=== PATIENT | male | born 1990 | race American Indian/Alaskan Native ===

== ENCOUNTER 2019-04-08 09:54 | Emergency (ER) | payer OTHER ==
[2019-04-08] MEDS ORDERED: BOOSTRIX IM ONE (10:35)
--- NOTE | 2019-04-08 10:40 | Emergency Department Report ---
- General Chief complaint: Extremity Injury, Lower Stated complaint: SPIDER BITE Time Seen by Provider: 04/08/19 10:20 Source: patient Mode of arrival: Ambulatory Limitations: No Limitations - History of Present Illness Initial comments: Patient is a 29-year-old male who presents emergency room with complaints of a possible spider bite to his left foot that occurred 3 days ago. He states he did not see anything bite him but did feel pain. pt states he has had redness and swelling to the foot. Denies any drainage or fever. he is unsure of his last tetanus immunization. Patient denies any past medical history or allergies to medications. - Related Data Previous Rx's Medication Instructions Recorded Last Taken Type Sulfamethoxazole/Trimethoprim 1 each PO BID 7 Days #14 tablet 04/08/19 Unknown Rx [Bactrim DS TAB] Allergies Allergy/AdvReac Type Severity Reaction Status Date / Time No Known Allergies Allergy Unverified 04/08/19 09:57 Abscess Boil HPI - HPI Chief Complaint: Extremity Injury, Lower Stated Complaint: SPIDER BITE Time Seen by Provider: 04/08/19 10:20 Home Medications: Previous Rx's Medication Instructions Recorded Last Taken Type Sulfamethoxazole/Trimethoprim 1 each PO BID 7 Days #14 tablet 04/08/19 Unknown Rx [Bactrim DS TAB] Allergies/Adverse Reactions: Allergies Allergy/AdvReac Type Severity Reaction Status Date / Time No Known Allergies Allergy Unverified 04/08/19 09:57 ED Review of Systems ROS: Stated complaint: SPIDER BITE Other details as noted in HPI Comment: All other systems reviewed and negative ED Past Medical Hx - Past Medical History Previous Medical History?: No - Surgical History Past Surgical History?: No - Social History Smoking Status: Current Every Day Smoker Substance Use Type: Alcohol - Medications Home Medications: Home Medications Medication Instructions Recorded Confirmed Last Taken Type Sulfamethoxazole/Trimethoprim 1 each PO BID 7 Days #14 tablet 04/08/19 Unknown Rx [Bactrim DS TAB] ED Physical Exam - General Limitations: No Limitations General appearance: alert, in no apparent distress - Head Head exam: Present: atraumatic, normocephalic - Eye Eye exam: Present: normal appearance - ENT ENT exam: Present: mucous membranes moist - Neurological Exam Neurological exam: Present: alert, oriented X3 - Psychiatric Psychiatric exam: Present: normal affect, normal mood - Skin Skin exam: Present: warm, dry, other (small hyperpigmented macule, left dorsal foot is edematous, erythematous, TTP, and increased warmth, no fluctuance, no necrosis, no drainage) ED Course Vital Signs 04/08/19 04/08/19 10:00 11:01 Temperature 98.4 F Pulse Rate 84 80 Respiratory 18 16 Rate Blood Pressure 115/75 Blood Pressure 114/71 [Left] O2 Sat by Pulse 100 100 Oximetry ED Medical Decision Making - Medical Decision Making Patient is a 29-year-old male who presents emergency room with complaints of a possible spider bite to his left foot that occurred 3 days ago. He states he did not see anything bite him but did feel pain. pt states he has had redness and swelling to the foot. Denies any drainage or fever. he is unsure of his last tetanus immunization. Patient denies any past medical history or allergies to medications. vitals are normal. on exam: small hyperpigmented macule, left dorsal foot is edematous, erythematous, TTP, and increased warmth, no fluctuance, no necrosis, no drainage. findings could represent possible spider bite with surrounding cellulitis, no abscess at this time and no necrosis. pt given tetanus immunization. pt given prescription for bactrim. advised pt to please take medication as prescribed completion. Follow up with a primary care doctor in the next 3 days for reevaluation. Return to the emergency room immediately for any new or worsening symptoms including but not limited to increasing redness, increasing pain, increasing swelling, drainage, etc. discussed with pt that he would need to return if abx were not working or if abscess formation occurred. - Differential Diagnosis spider bite, abscess, cellulitis Critical care attestation.: If time is entered above; I have spent that time in minutes in the direct care of this critically ill patient, excluding procedure time. ED Disposition Clinical Impression: Cellulitis Qualifiers: Site of cellulitis: extremity Site of cellulitis of extremity: lower extremity Laterality: left Qualified Code(s): L03.116 - Cellulitis of left lower limb Spider bite Qualifiers: Encounter type: initial encounter Injury intent: accidental or unintentional Qualified Code(s): T63.301A - Toxic effect of unspecified spider venom, accidental (unintentional), initial encounter Disposition: TO HOME OR SELFCARE Is pt being admited?: No Does the pt Need Aspirin: No Condition: Stable Instructions: Cellulitis (ED), Insect Bite or Sting (ED) Additional Instructions: Please take medication as prescribed completion. Follow up with a primary care doctor in the next 3 days for reevaluation. Return to the emergency room immediately for any new or worsening symptoms including but not limited to increasing redness, increasing pain, increasing swelling, drainage, etc. Prescriptions: Sulfamethoxazole/Trimethoprim [Bactrim DS TAB] 1 each PO BID 7 Days #14 tablet Referrals: [facility] [Provider Group] - 2-3 Days [facility] [Outside] - 2-3 Days [facility] [Outside] - 2-3 Days Time of Disposition: 10:39 Print Language: KAZAKH
[2019-04-08 11:02] VITALS: BP 114/71
== END 2019-04-08 11:01 | disposition home or self-care (01) ==
LOC: ED 09:54
DX: S90.862A Insect bite (nonvenomous), left foot, initial encounter (principal); L03.116 Cellulitis of left lower limb; F17.200 Nicotine dependence, unspecified, uncomplicated; Z79.899 Other long term (current) drug therapy; W57.XXXA Bitten or stung by nonvenomous insect and other nonvenomous arthropods, initial encounter; Y93.89 Activity, other specified; Y92.89 Other specified places as the place of occurrence of the external cause; Y99.8 Other external cause status
CPT/HCPCS: 90471; 90715

== ENCOUNTER 2020-10-09 06:52 | Emergency (ER) | payer SELFPAY ==
[2020-10-09] MEDS ORDERED: levETIRAcetam 1000 MG/NS 0.75% 1,000 MG/100 ML BAG IV ONE (07:02)
--- NOTE | 2020-10-09 07:07 | Emergency Department Report ---
ED Seizure HPI - General Stated Complaint: SEIZURE Time Seen by Provider: 10/09/20 06:58 Source: patient, EMS Mode of arrival: Ambulatory Limitations: No Limitations - History of Present Illness Initial Comments: CC: seizure HPI: THis is a 30 yo male with hx of marijuana use who presents with seizure. Seizure witnessed per girlfriend who contacted EMS. Patient was lethargic for 10 minutes according to EMS. Patient then became alert en route. He had one seizure one year ago. He does not take medication for seizure. Patient denies any other physical complaints. MD Complaint: seizure -: Sudden, This morning Description of Episode: tonic-clonic movement Witnessed:: Yes Trauma: No Seizure History: other (one previous seizure one year ago) Place: home Possible Precipitating Event: none Associated Symptoms: denies other symptoms Treatments Prior to Arrival: other (EMS transport) - Related Data Previous Rx's Medication Instructions Recorded Last Taken Type Sulfamethoxazole/Trimethoprim 1 each PO BID 7 Days #14 tablet 04/08/19 Unknown Rx [Bactrim DS TAB] Allergies Allergy/AdvReac Type Severity Reaction Status Date / Time No Known Allergies Allergy Unverified 04/08/19 09:57 ED Review of Systems ROS: Stated complaint: SEIZURE Other details as noted in HPI Comment: All other systems reviewed and negative Constitutional: denies: fever, malaise Respiratory: denies: cough Cardiovascular: denies: chest pain Gastrointestinal: denies: abdominal pain, nausea, vomiting ED Past Medical Hx - Past Medical History Previous Medical History?: No - Social History Smoking Status: Current Every Day Smoker Substance Use Type: Alcohol, Marijuana - Medications Home Medications: Home Medications Medication Instructions Recorded Confirmed Last Taken Type Sulfamethoxazole/Trimethoprim 1 each PO BID 7 Days #14 tablet 04/08/19 Unknown Rx [Bactrim DS TAB] ED Physical Exam - General Limitations: No Limitations General appearance: alert, in no apparent distress - Head Head exam: Present: atraumatic, normocephalic - Eye Eye exam: Present: normal appearance - ENT ENT exam: Present: mucous membranes moist - Neck Neck exam: Present: normal inspection, full ROM - Respiratory Respiratory exam: Present: normal lung sounds bilaterally. Absent: respiratory distress, wheezes, rales, rhonchi - Cardiovascular Cardiovascular Exam: Present: regular rate, normal rhythm, normal heart sounds. Absent: systolic murmur, diastolic murmur, rubs, gallop - GI/Abdominal GI/Abdominal exam: Present: soft, normal bowel sounds. Absent: distended, tenderness, guarding, rebound - Rectal Rectal exam: Present: deferred - Extremities Exam Extremities exam: Present: normal inspection - Neurological Exam Neurological exam: Present: alert, oriented X3 - Psychiatric Psychiatric exam: Present: normal affect, normal mood - Skin Skin exam: Present: warm, dry, intact, normal color. Absent: rash ED Medical Decision Making - Lab Data Result diagrams: 10/09/20 07:45 10/09/20 07:45 Laboratory Results - last 24 hr 10/09/20 10/09/20 07:45 07:45 WBC 5.4 RBC 4.38 Hgb 13.9 Hct 38.9 MCV 89 MCH 32 MCHC 36 H RDW 13.4 Plt Count 260 Lymph % (Auto) 21.7 [place] % (Auto) 10.4 H Eos % (Auto) 9.3 H Baso % (Auto) 0.5 Lymph # (Auto) 1.2 [place] # (Auto) 0.6 Eos # (Auto) 0.5 H Baso # (Auto) 0.0 Seg Neutrophils % 58.1 Seg Neutrophils # 3.1 Sodium 136 L Potassium 4.1 Chloride 99.9 Carbon Dioxide 28 Anion Gap 12 BUN 13 Creatinine 1.0 Estimated GFR > 60 BUN/Creatinine Ratio 13 Glucose 94 Calcium 9.2 Phosphorus 2.20 L Magnesium 2.20 Total Bilirubin 0.40 AST 19 ALT 12 Alkaline Phosphatase 64 Total Protein 7.3 Albumin 4.3 Albumin/Globulin Ratio 1.4 - Medical Decision Making Patient had a seizure. I suspect related to marijuana use. However patient understands that he is not allowed to drive until he is cleared by seizure specialist. CBC chemistry magnesium phosphorus all within normal limits. Patient was given seizure precautions. Critical care attestation.: If time is entered above; I have spent that time in minutes in the direct care of this critically ill patient, excluding procedure time. ED Disposition Clinical Impression: Seizure Disposition: DC-01 TO HOME OR SELFCARE Is pt being admited?: No Does the pt Need Aspirin: No Condition: Stable Instructions: Seizure, Adult, [id number] Referrals: TAMARA MISHRA MD [Referring] - 3-5 Days Forms: Work/School Release Form
[2020-10-09 08:14] LABS: Basophils % (Auto) 0.5 % (0.0-1.8); Eosinophils # (Auto) 0.5 K/mm3 (0.0-0.4); Eosinophils % (Auto) 9.3 % (0.0-4.3); Hematocrit 38.9 % (35.5-45.6); Hemoglobin 13.9 gm/dl (11.8-15.2); Lymphocytes # (Auto) 1.2 K/mm3 (1.2-5.4); Lymphocytes % (Auto) 21.7 % (13.4-35.0); Mean Corpuscular HGB Conc 36 % (32-34); Mean Corpuscular Volume 89 fl (84-94); Monocytes # (Auto) 0.6 K/mm3 (0.0-0.8); Monocytes % (Auto) 10.4 % (0.0-7.3); Platelet Count 260 K/mm3 (140-440); Red Blood Count 4.38 M/mm3 (3.65-5.03); Red Cell Distribution Width 13.4 % (13.2-15.2)
[2020-10-09 08:36] LABS: Alanine Aminotransferase 12 units/L (7-56); Albumin 4.3 g/dL (3.9-5); BUN/Creatinine Ratio 13; Blood Urea Nitrogen 13 mg/dL (9-20); Calcium 9.2 mg/dL (8.4-10.2); Hemolysis Index 6
[2020-10-09] MEDS ORDERED: levETIRAcetam 500 MG TAB PO ONE (09:26)
[2020-10-09 11:53] VITALS: BP 108/74
== END 2020-10-09 11:20 | disposition home or self-care (01) ==
LOC: ED 06:52
DX: G40.909 Epilepsy, unspecified, not intractable, without status epilepticus (principal); F17.200 Nicotine dependence, unspecified, uncomplicated; F12.90 Cannabis use, unspecified, uncomplicated; Z79.899 Other long term (current) drug therapy
CPT/HCPCS: 36415; 80053; 83735; 84100; 85025; 99283; J1953

== ENCOUNTER 2020-10-17 09:25 | Emergency (ER) | payer OTHER ==
[2020-10-17 09:39] VITALS: BP 120/77
--- NOTE | 2020-10-17 11:05 | Emergency Department Report ---
ED Back Pain/Injury HPI - General Chief Complaint: Extremity Injury, Upper Stated Complaint: RT SIDE CHEST PAIN Time Seen by Provider: 10/17/20 10:25 Source: patient Limitations: No Limitations - History of Present Illness Initial Comments: 30-year-old male presents to the ER today with complaints of midthoracic back pain. Patient states that he has been having midthoracic back pain for about a month. He states that he notices the back pain mainly when he turns to the left. Patient states that he suffered an accidental fall at [facility] a little bit over a month ago. He states that he landed on his left side after tripping on a pallet at [facility]. He states that he did not go get checked out after the fall. He does have a primary care doctor but he has not spoken to his primary care about doctor about his back pain. He states that has been taking [id number] ibuprofen with some mild relief. He denies any associated chest pain, abdominal pain, bowel or bladder incontinence, urinary retention or constipation, saddle anesthesia or any other symptoms at this time. MD Complaint: back pain, back injury -: month(s) (1) - Related Data Previous Rx's Medication Instructions Recorded Last Taken Type Sulfamethoxazole/Trimethoprim 1 each PO BID 7 Days #14 tablet 04/08/19 Unknown Rx [Bactrim DS TAB] methOCARBAMOL [Robaxin TAB] 500 mg PO Q6H PRN #30 tablet 10/17/20 Unknown Rx Allergies Allergy/AdvReac Type Severity Reaction Status Date / Time No Known Allergies Allergy Unverified 04/08/19 09:57 ED Review of Systems ROS: Stated complaint: RT SIDE CHEST PAIN Other details as noted in HPI Comment: All other systems reviewed and negative Constitutional: denies: chills, fever, malaise, weakness Eyes: denies: eye pain, eye discharge, vision change ENT: denies: ear pain, throat pain, dental pain, hearing loss, epistaxis, congestion Respiratory: denies: cough, shortness of breath, SOB with exertion, SOB at rest, wheezing Cardiovascular: denies: chest pain, palpitations, dyspnea on exertion, edema, syncope, paroxysmal nocturnal dyspnea Gastrointestinal: denies: abdominal pain, nausea, vomiting, diarrhea, constipation, hematemesis, melena, hematochezia Musculoskeletal: back pain. denies: joint swelling, arthralgia, myalgia Skin: as per HPI Neurological: denies: headache, weakness, paresthesias, confusion Psychiatric: denies: anxiety, depression, visual hallucinations, homicidal thoughts, suicidal thoughts Hematological/Lymphatic: denies: easy bleeding, easy bruising ED Past Medical Hx - Past Medical History Hx Arthritis: Yes Hx Seizures: Yes ("can't remember last time I had seizure medicine") - Surgical History Past Surgical History?: No - Social History Smoking Status: Current Every Day Smoker Substance Use Type: Alcohol - Medications Home Medications: Home Medications Medication Instructions Recorded Confirmed Last Taken Type Sulfamethoxazole/Trimethoprim 1 each PO BID 7 Days #14 tablet 04/08/19 Unknown Rx [Bactrim DS TAB] methOCARBAMOL [Robaxin TAB] 500 mg PO Q6H PRN #30 tablet 10/17/20 Unknown Rx ED Physical Exam - General Limitations: No Limitations General appearance: alert, in no apparent distress - Head Head exam: Present: atraumatic, normocephalic, normal inspection - Eye Eye exam: Present: normal appearance, PERRL, EOMI Pupils: Present: normal accommodation - Neck Neck exam: Present: normal inspection, full ROM - Respiratory Respiratory exam: Present: normal lung sounds bilaterally. Absent: respiratory distress - Cardiovascular Cardiovascular Exam: Present: regular rate, normal rhythm, normal heart sounds - GI/Abdominal GI/Abdominal exam: Present: soft. Absent: distended, tenderness, guarding, rebound - Back Exam Back exam: Present: normal inspection, full ROM, paraspinal tenderness (Right paraspinal muscles of mid thoracic area with some mild spasm). Absent: CVA tenderness (R), CVA tenderness (L), vertebral tenderness - Neurological Exam Neurological exam: Present: alert, oriented X3, CN II-XII intact, normal gait - Psychiatric Psychiatric exam: Present: normal affect, normal mood - Skin Skin exam: Present: intact ED Course Vital Signs 10/17/20 10/17/20 09:33 12:12 Temperature 99.1 F Pulse Rate 102 H 92 H Respiratory 20 20 Rate Blood Pressure 120/77 O2 Sat by Pulse 98 99 Oximetry ED Medical Decision Making - Radiology Data Radiology results: report reviewed Patient: GAVIN RAZO MR#: [id number] 6 : 1990 Acct:[id number] Age/Sex: 30 / M ADM Date: 10/17/20 Loc: ED Attending Dr: Ordering Physician: ДМИТРИЙ HUNTLEY Date of Service: 10/17/20 Procedure(s): XR spine thoracic 3V Accession Number(s): [id number] cc: ДМИТРИЙ Zuleta Time In Minutes: XR spine thoracic 3V INDICATION / CLINICAL INFORMATION: Accidental fall 1 month ago/midthoracic back pain. COMPARISON: None available. FINDINGS: BONES/JOINT(S): Dominant right convex curvature of the thoracic spine, centered at T11. No acute fracture or malalignment. Disc spaces are preserved. PARASPINAL SOFT TISSUES:No significant abnormality. ADDITIONAL FINDINGS: None. IMPRESSION: Dextroscoliosis of the lower thoracic spine. No acute fracture or malalignment. Signer Name: Corina Valdivia MD Signed: 10/17/2020 11:49 AM Workstation Name: [id number] Transcribed By: TOMMY Dictated By: CORINA VALDIVIA MD Electronically Authenticated By: CORINA VALDIVIA MD Signed Date/Time: 10/17/20 1149 DD/ 1147 TD/TT: - Medical Decision Making The patient presented with acute back pain. The patient is resting comfortably and , is alert, talkative, interactive and in no distress. The patient is neurologically intact and is ambulatory in the ED. the patient has no fever, no bowel or bladder incontinence, no saddle anesthesia and is otherwise alert and well-appearing. X-ray of the T-spine shows nothing acute. With history, physical examination and diagnostic testing does not suggest the presence of acute spinal epidural abscess, acute epidural bleed, cauda equina syndrome, abdominal/thoracic aortic aneurysm, aortic dissection or other acute process requiring further testing, treatment or consultation in the emergency department. The vital signs have been stable. The patient condition is stable and appropriate for discharge. The patient will pursue further outpatient evaluation with the primary care physician. Critical care attestation.: If time is entered above; I have spent that time in minutes in the direct care of this critically ill patient, excluding procedure time. ED Disposition Clinical Impression: Thoracic back pain, Back muscle spasm Disposition: - TO HOME OR SELFCARE Is pt being admited?: No Does the pt Need Aspirin: No Condition: Stable Instructions: Muscle Cramps and Spasms, Thoracic Strain, [id number]-[id number] Additional Instructions: Continue taking Tylenol and/or Motrin from [id number]. You can take the muscle relaxer as prescribed. I recommend that you follow-up with your primary care doctor especially if your back pain continues for further evaluation. Return to the ER symptoms changes or worsens in any way. Prescriptions: methOCARBAMOL [Robaxin TAB] 500 mg PO Q6H PRN #30 tablet PRN Reason: back spasm Referrals: PRIMARY CARE, [Primary Care Provider] - 3-5 Days Time of Disposition: 12:02
--- NOTE | 2020-10-17 11:53 | XRay Report ---
XR spine thoracic 3V INDICATION / CLINICAL INFORMATION: Accidental fall 1 month ago/midthoracic back pain. COMPARISON: None available. FINDINGS: BONES/JOINT(S): Dominant right convex curvature of the thoracic spine, centered at T11. No acute frac ture or malalignment. Disc spaces are preserved. PARASPINAL SOFT TISSUES:No significant abnormality. ADDITIONAL FINDINGS: None. IMPRESSION: Dextroscoliosis of the lower thoracic spine. No acute fracture or malalignment. Signer Name: Nimesh Valdivia MD Signed: 10/17/2020 11:49 AM Workstation Name: [id number]
== END 2020-10-17 12:12 | disposition home or self-care (01) ==
LOC: ED 09:25
DX: M54.6 Pain in thoracic spine (principal); M62.830 Muscle spasm of back; M19.90 Unspecified osteoarthritis, unspecified site; G40.909 Epilepsy, unspecified, not intractable, without status epilepticus; F17.200 Nicotine dependence, unspecified, uncomplicated; Z79.899 Other long term (current) drug therapy
CPT/HCPCS: 72072; 99283

== ENCOUNTER 2021-05-01 22:02 | Emergency (ER) | payer SELFPAY ==
[2021-05-01] MEDS ORDERED: levETIRAcetam 1,000 MG in SODIUM CHLORIDE 0.9% 100 ML IV ONE (22:34)
--- NOTE | 2021-05-01 23:04 | Emergency Department Report ---
ED Seizure HPI - General Chief Complaint: Seizure Stated Complaint: SEIZURE Time Seen by Provider: 05/01/21 22:25 Source: EMS Mode of arrival: Stretcher Limitations: No Limitations - History of Present Illness Initial Comments: 31-year-old male, history of seizure disorder, presents to ED following seizure. Patient reportedly had multiple seizures per EMS. Patient has had multiple visits to this ER for same. Patient has been given prescriptions in the past, however patient states that he has never gotten them filled. Patient states he has not followed up with a neurologist. Patient reports marijuana use, denies any other drug use. He denies any recent fever or illness. He denies any headache or any other complaints at this time. MD Complaint: seizure -: This evening Seizure History: known seizure disorder, history of non-compliance Associated Symptoms: denies other symptoms. denies: chest pain, fever/chills, shortness of breath Treatments Prior to Arrival: none - Related Data Previous Rx's Medication Instructions Recorded Last Taken Type Sulfamethoxazole/Trimethoprim 1 each PO BID 7 Days #14 tablet 04/08/19 Unknown Rx [Bactrim DS TAB] methOCARBAMOL [Robaxin TAB] 500 mg PO Q6H PRN #30 tablet 10/17/20 Unknown Rx levETIRAcetam [Keppra TAB] 500 mg PO BID #60 tablet 05/02/21 Unknown Rx Allergies Allergy/AdvReac Type Severity Reaction Status Date / Time No Known Allergies Allergy Verified 05/01/21 22:15 ED Review of Systems ROS: Stated complaint: SEIZURE Other details as noted in HPI Comment: All other systems reviewed and negative Constitutional: denies: fever Respiratory: denies: shortness of breath Cardiovascular: denies: chest pain Neurological: as per HPI. denies: headache ED Past Medical Hx - Past Medical History Hx Arthritis: Yes Hx Seizures: Yes ("can't remember last time I had seizure medicine") - Social History Smoking Status: Current Every Day Smoker Substance Use Type: Alcohol - Medications Home Medications: Home Medications Medication Instructions Recorded Confirmed Last Taken Type Sulfamethoxazole/Trimethoprim 1 each PO BID 7 Days #14 tablet 04/08/19 Unknown Rx [Bactrim DS TAB] methOCARBAMOL [Robaxin TAB] 500 mg PO Q6H PRN #30 tablet 10/17/20 Unknown Rx levETIRAcetam [Keppra TAB] 500 mg PO BID #60 tablet 05/02/21 Unknown Rx ED Physical Exam - General Limitations: No Limitations General appearance: in no apparent distress, lethargic - Head Head exam: Present: atraumatic, normocephalic - Eye Eye exam: Present: normal appearance, PERRL, EOMI - ENT ENT exam: Present: mucous membranes moist - Neck Neck exam: Present: normal inspection - Respiratory Respiratory exam: Present: normal lung sounds bilaterally. Absent: respiratory distress - Cardiovascular Cardiovascular Exam: Present: regular rate, normal rhythm - GI/Abdominal GI/Abdominal exam: Present: soft. Absent: distended, tenderness - Extremities Exam Extremities exam: Present: normal inspection - Neurological Exam Neurological exam: Present: alert, oriented X3 (Oriented, responses slow, patient somewhat postictal), CN II-XII intact. Absent: motor sensory deficit - Psychiatric Psychiatric exam: Present: normal affect, normal mood - Skin Skin exam: Present: warm, dry, intact, normal color ED Course Vital Signs 05/01/21 05/01/21 05/01/21 22:17 22:28 22:31 Temperature 97.9 F Pulse Rate 93 H 64 70 Respiratory 16 18 12 Rate Blood Pressure Blood Pressure 122/63 [Left] O2 Sat by Pulse 98 97 98 Oximetry 05/01/21 05/01/21 05/01/21 22:45 23:01 23:13 Temperature Pulse Rate 69 83 57 L Respiratory 15 14 15 Rate Blood Pressure 109/63 103/62 109/61 Blood Pressure [Left] O2 Sat by Pulse 97 97 98 Oximetry 05/01/21 05/01/21 05/01/21 23:15 23:31 23:45 Temperature Pulse Rate 57 L 71 60 Respiratory 16 14 15 Rate Blood Pressure 109/61 112/70 110/61 Blood Pressure [Left] O2 Sat by Pulse 98 96 98 Oximetry 05/02/21 05/02/21 05/02/21 00:01 00:15 00:31 Temperature Pulse Rate 57 L 61 63 Respiratory 17 15 18 Rate Blood Pressure 109/65 110/61 97/38 Blood Pressure [Left] O2 Sat by Pulse 97 97 97 Oximetry 05/02/21 05/02/21 05/02/21 00:45 01:01 01:15 Temperature Pulse Rate 59 L 61 59 L Respiratory 15 14 17 Rate Blood Pressure 98/38 107/49 106/53 Blood Pressure [Left] O2 Sat by Pulse 97 97 98 Oximetry 05/02/21 05/02/21 05/02/21 01:31 01:45 02:01 Temperature Pulse Rate 56 L 62 54 L Respiratory 15 11 L 15 Rate Blood Pressure 100/46 102/46 111/56 Blood Pressure [Left] O2 Sat by Pulse 97 96 98 Oximetry 05/02/21 05/02/21 05/02/21 02:02 02:15 02:31 Temperature Pulse Rate 58 L 58 L Respiratory 16 15 Rate Blood Pressure 104/43 100/40 Blood Pressure [Left] O2 Sat by Pulse 98 99 99 Oximetry 05/02/21 05/02/21 05/02/21 02:45 03:01 03:15 Temperature Pulse Rate 72 56 L 55 L Respiratory 8 L 14 14 Rate Blood Pressure 112/53 122/59 118/58 Blood Pressure [Left] O2 Sat by Pulse 100 98 98 Oximetry 05/02/21 05/02/21 05/02/21 03:31 03:45 04:01 Temperature Pulse Rate 58 L 55 L 53 L Respiratory 15 15 14 Rate Blood Pressure 121/58 122/64 118/58 Blood Pressure [Left] O2 Sat by Pulse 98 98 98 Oximetry 05/02/21 05/02/21 05/02/21 04:15 04:31 04:45 Temperature Pulse Rate 54 L 62 55 L Respiratory 15 13 15 Rate Blood Pressure 95/43 97/46 100/40 Blood Pressure [Left] O2 Sat by Pulse 97 99 99 Oximetry 05/02/21 05/02/21 05/02/21 05:01 05:15 05:31 Temperature Pulse Rate 56 L 56 L 56 L Respiratory 14 13 13 Rate Blood Pressure 111/56 113/55 108/61 Blood Pressure [Left] O2 Sat by Pulse 99 99 99 Oximetry 05/02/21 05/02/21 05/02/21 05:45 06:01 06:15 Temperature Pulse Rate 55 L 55 L 54 L Respiratory 13 15 15 Rate Blood Pressure 111/60 113/55 109/61 Blood Pressure [Left] O2 Sat by Pulse 98 98 98 Oximetry 05/02/21 05/02/21 05/02/21 06:31 06:45 07:01 Temperature Pulse Rate 50 L 52 L 53 L Respiratory 14 16 17 Rate Blood Pressure 101/54 102/47 106/45 Blood Pressure [Left] O2 Sat by Pulse 99 99 99 Oximetry 05/02/21 05/02/21 05/02/21 07:15 07:31 08:33 Temperature Pulse Rate 55 L 57 L 81 Respiratory 14 14 19 Rate Blood Pressure 99/48 111/58 Blood Pressure 114/65 [Left] O2 Sat by Pulse 99 99 99 Oximetry ED Medical Decision Making - Lab Data Result diagrams: 05/01/21 22:46 05/01/21 22:46 - Medical Decision Making Labs are unremarkable. Patient initially somewhat lethargic and postictal upon arrival. Patient is no more awake and arousable. He is able to answer questions. He is A&O x3. Patient has been given Keppra load here in the ED. He has been observed in the ED x4 hours, no further seizures. Will discharge at this time with prescription for Keppra. Outpatient follow-up advised, return precautions given. - Differential Diagnosis Seizure, medication noncompliance Critical care attestation.: If time is entered above; I have spent that time in minutes in the direct care of this critically ill patient, excluding procedure time. ED Disposition Clinical Impression: Seizure Disposition: 01 HOME / SELF CARE / HOMELESS Is pt being admited?: No Condition: Stable Instructions: Seizure, Adult, [id number] Prescriptions: levETIRAcetam [Keppra TAB] 500 mg PO BID #60 tablet Referrals: TAMARA MISHRA MD [Referring] - 3-5 Days [facility] [Provider Group] - 3-5 Days Time of Disposition: 02:01
[2021-05-01 23:14] LABS: BUN/Creatinine Ratio 10; Blood Urea Nitrogen 9 mg/dL (9-20); Calcium 9.3 mg/dL (8.4-10.2); Hemolysis Index 37
[2021-05-01] MEDS ORDERED: levETIRAcetam 1000 MG/NS 0.75% 1,000 MG/100 ML BAG IV ONE (23:30)
[2021-05-01 23:32] LABS: Basophils # (Auto) 0.2 K/mm3 (0.0-0.1); Basophils % (Auto) 2.2 % (0.0-1.8); Eosinophils # (Auto) 0.1 K/mm3 (0.0-0.4); Eosinophils % (Auto) 1.1 % (0.0-4.3); Hematocrit 39.6 % (35.5-45.6); Hemoglobin 13.8 gm/dl (11.8-15.2); Lymphocytes # (Auto) 0.4 K/mm3 (1.2-5.4); Mean Corpuscular HGB Conc 35 % (32-34); Mean Corpuscular Volume 90 fl (84-94); Monocytes # (Auto) 0.4 K/mm3 (0.0-0.8); Monocytes % (Auto) 4.4 % (0.0-7.3); Platelet Count 259 K/mm3 (140-440); Red Cell Distribution Width 13.5 % (13.2-15.2)
[2021-05-02 08:34] VITALS: BP 114/65
== END 2021-05-02 09:52 | disposition home or self-care (01) ==
LOC: ED 22:02
DX: G40.909 Epilepsy, unspecified, not intractable, without status epilepticus (principal); F17.200 Nicotine dependence, unspecified, uncomplicated; M19.90 Unspecified osteoarthritis, unspecified site; Z72.89 Other problems related to lifestyle; Z79.899 Other long term (current) drug therapy
CPT/HCPCS: 36415; 80048; 83735; 85025; 96365; 99283; J1953

== ENCOUNTER 2021-06-11 21:50 | Emergency (ER) | payer SELFPAY ==
[2021-06-11] MEDS ORDERED: levETIRAcetam 1000 MG/NS 0.75% 1,000 MG/100 ML BAG IV ONE (21:54)
[2021-06-11] MEDS ORDERED: IBUPROFEN 800 MG TAB PO ONE (22:40)
--- NOTE | 2021-06-11 22:40 | Emergency Department Report ---
ED Seizure HPI - General Chief Complaint: Seizure Time Seen by Provider: 06/11/21 21:54 Source: EMS Mode of arrival: Stretcher Limitations: No Limitations - History of Present Illness Initial Comments: CC: seizure HPI: This is a 31 yo male with hx of marijuana dependence and previous seizure. He began having seizures earlier this year. I evaluated this gentleman in September for seizure first-time. This is Mr. Razo's fourth visit this year for seizure. He does not take antiepileptic medication regularly. He has been prescribed Keppra through the ED. He has not been evaluated by a neurologist. He has pain due to tongue biting. He has mild headache. He arrived via EMS. MD Complaint: seizure Trauma: Yes (Tongue biting) Seizure History: other (Previous history of seizure) Place: home Possible Precipitating Event: drug use Associated Symptoms: other (Headache tongue pain) Treatments Prior to Arrival: none - Related Data Previous Rx's Medication Instructions Recorded Last Taken Type Sulfamethoxazole/Trimethoprim 1 each PO BID 7 Days #14 tablet 04/08/19 Unknown Rx [Bactrim DS TAB] methOCARBAMOL [Robaxin TAB] 500 mg PO Q6H PRN #30 tablet 10/17/20 Unknown Rx levETIRAcetam [Keppra TAB] 500 mg PO BID #60 tablet 05/02/21 Unknown Rx levETIRAcetam [Keppra TAB] 500 mg PO BID #60 tablet 06/11/21 Unknown Rx Allergies Allergy/AdvReac Type Severity Reaction Status Date / Time No Known Allergies Allergy Verified 05/01/21 22:15 ED Review of Systems ROS: Stated complaint: Other details as noted in HPI Comment: All other systems reviewed and negative Constitutional: denies: chills, fever, malaise Respiratory: denies: cough, shortness of breath Cardiovascular: denies: chest pain Gastrointestinal: denies: abdominal pain, nausea, vomiting Neurological: headache ED Past Medical Hx - Past Medical History Previous Medical History?: Yes Hx Arthritis: Yes Hx Seizures: Yes ("can't remember last time I had seizure medicine") - Surgical History Past Surgical History?: Yes - Social History Smoking Status: Never Smoker Substance Use Type: Marijuana - Medications Home Medications: Home Medications Medication Instructions Recorded Confirmed Last Taken Type Sulfamethoxazole/Trimethoprim 1 each PO BID 7 Days #14 tablet 04/08/19 Unknown Rx [Bactrim DS TAB] methOCARBAMOL [Robaxin TAB] 500 mg PO Q6H PRN #30 tablet 10/17/20 Unknown Rx levETIRAcetam [Keppra TAB] 500 mg PO BID #60 tablet 05/02/21 Unknown Rx levETIRAcetam [Keppra TAB] 500 mg PO BID #60 tablet 06/11/21 Unknown Rx ED Physical Exam - General Limitations: No Limitations General appearance: alert, in no apparent distress - Head Head exam: Present: atraumatic, normocephalic - Eye Eye exam: Present: normal appearance - ENT ENT exam: Present: mucous membranes moist, other (Two small anterior hematomas of the tongue 1 cm diameter no laceration) - Neck Neck exam: Present: normal inspection, full ROM - Respiratory Respiratory exam: Present: normal lung sounds bilaterally. Absent: respiratory distress, wheezes, rales, rhonchi - Cardiovascular Cardiovascular Exam: Present: regular rate, normal rhythm. Absent: systolic murmur, diastolic murmur, rubs, gallop - GI/Abdominal GI/Abdominal exam: Present: soft, normal bowel sounds. Absent: distended, tenderness, guarding, rebound - Rectal Rectal exam: Present: deferred - Extremities Exam Extremities exam: Present: normal inspection - Neurological Exam Neurological exam: Present: alert, oriented X3 - Psychiatric Psychiatric exam: Present: normal affect, normal mood - Skin Skin exam: Present: warm, dry, intact, normal color. Absent: rash ED Course Vital Signs 06/11/21 06/11/21 06/11/21 21:59 22:08 22:22 Temperature 98.6 F 99.1 F Pulse Rate 92 H 85 Respiratory 16 18 Rate Blood Pressure 132/78 Blood Pressure 138/72 [Left] O2 Sat by Pulse 98 99 99 Oximetry 06/11/21 06/12/21 06/12/21 23:00 00:00 01:04 Temperature Pulse Rate Respiratory Rate Blood Pressure Blood Pressure [Left] O2 Sat by Pulse 97 99 96 Oximetry 06/12/21 06/12/21 06/12/21 01:14 03:33 03:37 Temperature 100.1 F H Pulse Rate 57 L 73 Respiratory 16 13 Rate Blood Pressure Blood Pressure 110/54 105/71 [Left] O2 Sat by Pulse 98 99 98 Oximetry 06/12/21 04:35 Temperature 99.6 F Pulse Rate 70 Respiratory 16 Rate Blood Pressure Blood Pressure 110/47 [Left] O2 Sat by Pulse 98 Oximetry - Reevaluation(s) Reevaluation #1: 06/12/21 03:44 Patient patient was sleeping but easily arousable. Normal mental status. He is alert and oriented x4. He is cooperative. Will discharge patient once he is fully awake and able to obtain transportation. His family members are not available at this time. Reevaluation #2: 06/12/21 05:31 Patient appears well. Comfortable. He is arousable and alert. Patient will be discharged home with prescription for Keppra. Reevaluation #3: 06/12/21 05:31 I was initially informed patient had fever. No meningitis. He appears well. Nontoxic. Normal vital signs. ED Medical Decision Making - Lab Data Result diagrams: 06/11/21 23:49 06/11/21 23:49 - Radiology Data Radiology results: report reviewed Patient Name: GAVIN RAZO Gender: Male Date of : 1990 Referring Provider: LUZ DELEON Organization: [facility] Accession Number: [id number] Requested Date: June 11, 2021 00:30 Report Status: Final Requested Procedure: 1 Procedure Description: CT head/brain wo con Modality: CT Findings Reporting MD: Jose Alfredo Segura Dictation Time: June 11, 2021 23:58 [employer] Finisher: Not available [employer] Date: CT head without contrast INDICATION : Altered Mental Status, seizure, headache. TECHNIQUE: Axial imaging performed from the skull apex through the skull base wi thout the use of contrast. All CT scans at this location are performed using CT dose reduction for ALARA by means of automated exposure control. COMPARISON: None FINDINGS: Parenchyma: No mass, stroke or hemorrhage. Ventricles: Ventricles are normal in size and appear symmetric. Soft tissues: Soft tissue swelling right frontal region. Bones: No acute osseous abnormality. Sinuses: Sinuses and mastoid air cells are clear. IMPRESSION: 1. No intracranial abnormality. 2. Soft tissue swelling right frontal region. Signer Name: Jose Alfredo Segura MD Signed: 06/11/2021 11:58 PM Workstation Name: [id number] - Medical Decision Making Seizure with history of recurrent seizure and marijuana dependence. CT head obtained due to persistent abnormal mental status. Nurse reported to me that he pulled out IV. He wandered aimlessly around the department. Patient is now appropriate. Neurologically intact. After observation patient had low- grade fever. No indication of bacterial infection such as pneumonia, pharyngitis or meningitis. CT head does reveal forehead hematoma. CBC chemistry within normal limits Critical care attestation.: If time is entered above; I have spent that time in minutes in the direct care of this critically ill patient, excluding procedure time. ED Disposition Clinical Impression: Seizure, Marijuana dependence, Closed head injury Disposition: HOME / SELF CARE / HOMELESS Is pt being admited?: No Does the pt Need Aspirin: No Condition: Stable Instructions: Cannabis Use Disorder, Seizure, Adult, [id number] Prescriptions: levETIRAcetam [Keppra TAB] 500 mg PO BID #60 tablet Referrals: TAMARA MISHRA MD [Referring] - 3-5 Days
[2021-06-12] MEDS ORDERED: ONDANSETRON 4 MG ODT TAB PO ONE (00:11)
[2021-06-12 00:34] LABS: Alanine Aminotransferase 21 units/L (7-56); Albumin 4.3 g/dL (3.9-5); BUN/Creatinine Ratio 13; Blood Urea Nitrogen 10 mg/dL (9-20); Calcium 8.8 mg/dL (8.4-10.2); Hemolysis Index 5
[2021-06-12 00:53] LABS: Basophils % (Auto) 0.4 % (0.0-1.8); Eosinophils % (Auto) 0.3 % (0.0-4.3); Hematocrit 41.2 % (35.5-45.6); Lymphocytes % (Auto) 12.2 % (13.4-35.0); Mean Corpuscular HGB Conc 32 % (32-34); Mean Corpuscular Volume 91 fl (84-94); Monocytes # (Auto) 0.7 K/mm3 (0.0-0.8); Monocytes % (Auto) 8.4 % (0.0-7.3); Platelet Count 251 K/mm3 (140-440); Red Blood Count 4.52 M/mm3 (3.65-5.03); Red Cell Distribution Width 14.2 % (13.2-15.2)
--- NOTE | 2021-06-12 01:02 | Cat Scan Report ---
CT head without contrast INDICATION : Altered Mental Status, seizure, headache. TECHNIQUE: Axial imaging performed from the skull apex through the skull base without the use of con trast. All CT scans at this location are performed using CT dose reduction for ALARA by means of aut omated exposure control. COMPARISON: None FINDINGS: Parenchyma: No mass, stroke or hemorrhage. Ventricles: Ventricles are normal in size and appear symmetric. Soft tissues: Soft tissue swelling right frontal region. Bones: No acute osseous abnormality. Sinuses: Sinuses and mastoid air cells are clear. IMPRESSION: 1. No intracranial abnormality. 2. Soft tissue swelling right frontal region. Signer Name: Jose Alfredo Segura MD Signed: 06/12/2021 12:58 AM Workstation Name: [id number]
[2021-06-12] MEDS ORDERED: ACETAMINOPHEN 500 MG TAB PO ONE (03:46)
[2021-06-12 04:36] VITALS: BP 110/47
== END 2021-06-12 05:53 | disposition home or self-care (01) ==
LOC: ED 21:50
DX: S09.90XA Unspecified injury of head, initial encounter (principal); R56.9 Unspecified convulsions; F12.20 Cannabis dependence, uncomplicated; X58.XXXA Exposure to other specified factors, initial encounter; Y93.89 Activity, other specified; Y92.89 Other specified places as the place of occurrence of the external cause; Y99.8 Other external cause status
CPT/HCPCS: 36415; 70450; 80053; 85025; 96365; 96375; 99284; J1953

== ENCOUNTER 2021-07-25 09:05 | Emergency (ER) | payer SELFPAY ==
[2021-07-25] MEDS ORDERED: levETIRAcetam 1000 MG/NS 0.75% 1,000 MG/100 ML BAG IV ONE ×2 (10:03→10:11)
[2021-07-25] MEDS ORDERED: LORazepam 2 MG/ML VIAL ONE (10:03)
[2021-07-25] MEDS ORDERED: LORazepam 2 MG/ML VIAL IV NR (10:15)
--- NOTE | 2021-07-25 10:52 | XRay Report ---
CHEST 1 VIEW INDICATION: multiple seizures. COMPARISON: None FINDINGS: Support devices: None. Heart: Within normal limits. Lungs/Pleura: No acute air space or interstitial disease. Additional findings: None. IMPRESSION: No acute findings. Signer Name: Shawn Zarate Jr, MD Signed: 07/25/2021 10:48 AM Workstation Name: [id number]
[2021-07-25 10:53] LABS: Basophils # (Auto) 0.1 K/mm3 (0.0-0.1); Basophils % (Auto) 0.6 % (0.0-1.8); Eosinophils # (Auto) 0.2 K/mm3 (0.0-0.4); Eosinophils % (Auto) 2.6 % (0.0-4.3); Hematocrit 46.3 % (35.5-45.6); Hemoglobin 14.5 gm/dl (11.8-15.2); Lymphocytes # (Auto) 2.2 K/mm3 (1.2-5.4); Lymphocytes % (Auto) 22.9 % (13.4-35.0); Mean Corpuscular HGB Conc 31 % (32-34); Mean Corpuscular Volume 95 fl (84-94); Monocytes # (Auto) 1.2 K/mm3 (0.0-0.8); Platelet Count 303 K/mm3 (140-440); Red Blood Count 4.86 M/mm3 (3.65-5.03); Red Cell Distribution Width 14.5 % (13.2-15.2)
[2021-07-25 11:16] LABS: BUN/Creatinine Ratio 11; Blood Urea Nitrogen 10 mg/dL (9-20); Calcium 9.2 mg/dL (8.4-10.2); Hemolysis Index 9
[2021-07-25 13:12] VITALS: BP 105/51
--- NOTE | 2021-07-25 14:39 | Emergency Department Report ---
ED Seizure HPI - General Chief Complaint: Seizure Stated Complaint: SEIZURE Time Seen by Provider: 07/25/21 10:11 Source: EMS, old records reviewed Mode of arrival: Stretcher Limitations: Other - History of Present Illness Initial Comments: 31-year-old male with a past medical history of seizures presented hospital with seizures. EMS was notified by family who witnessed patient having a seizure for approximately 3 minutes. Patient was postictal upon their arrival but did become alert and oriented x4 at time of ED arrival. Patient then had 2 seizures witnessed by myself and staff while awaiting room assignment. Patient emergently received Ativan 2 mg and 1 g of Keppra. As per previous medical history this is patient's fifth presentation since September for seizures and patient has presented here and April and May for the same. It is do cumented that patient has not followed up with neurology, smokes marijuana, and does not reliably take his Keppra. - Related Data Previous Rx's Medication Instructions Recorded Last Taken Type Sulfamethoxazole/Trimethoprim 1 each PO BID 7 Days #14 tablet 04/08/19 Unknown Rx [Bactrim DS TAB] methOCARBAMOL [Robaxin TAB] 500 mg PO Q6H PRN #30 tablet 10/17/20 Unknown Rx levETIRAcetam [Keppra TAB] 500 mg PO BID #60 tablet 05/02/21 Unknown Rx levETIRAcetam [Keppra TAB] 500 mg PO BID #60 tablet 07/25/21 Unknown Rx Allergies Allergy/AdvReac Type Severity Reaction Status Date / Time No Known Allergies Allergy Verified 05/01/21 22:15 ED Review of Systems ROS: Stated complaint: SEIZURE Other details as noted in HPI Comment: Unobtainable due to pts medical conditions ED Past Medical Hx - Past Medical History Previous Medical History?: Yes Hx Arthritis: Yes Hx Seizures: Yes ("can't remember last time I had seizure medicine") - Social History Smoking Status: Never Smoker Substance Use Type: Marijuana - Medications Home Medications: Home Medications Medication Instructions Recorded Confirmed Last Taken Type Sulfamethoxazole/Trimethoprim 1 each PO BID 7 Days #14 tablet 04/08/19 Unknown Rx [Bactrim DS TAB] methOCARBAMOL [Robaxin TAB] 500 mg PO Q6H PRN #30 tablet 10/17/20 Unknown Rx levETIRAcetam [Keppra TAB] 500 mg PO BID #60 tablet 05/02/21 Unknown Rx levETIRAcetam [Keppra TAB] 500 mg PO BID #60 tablet 07/25/21 Unknown Rx ED Physical Exam - General Limitations: Other - Other Other exam information: General: Active seizure during my initial evaluation with EMS Head: Atraumatic Eyes: normal appearance ENT: Blood from mouth during seizure activity, mild tongue abrasion/dental injury to right anterior. Laceration repair not required, no active bleeding Neck: Normal appearance, no midline tenderness Chest: Clear to auscultation bilaterally CV: Regular rate and rhythm Abdomen: Soft, normal bowel sounds, nontender, nondistended, no rebound or guarding Back: Normal inspection Extremity: Normal inspection, full range of motion Neuro: Actively seizing upon my initial evaluation actively seizing upon my initial evaluation with generalized tonic-clonic movement Psych: Appropriate behavior Skin: Diaphoresis during seizure ED Course Vital Signs 07/25/21 07/25/21 07/25/21 09:06 13:11 13:32 Temperature 98.0 F Pulse Rate 81 63 Respiratory 14 14 Rate Blood Pressure 118/51 105/51 [Left] O2 Sat by Pulse 96 100 97 Oximetry - Reevaluation(s) Reevaluation #1: 07/25/21 15:28 Patient currently drowsy but arousable. He denies any complaints. He is o riented x3. He admits to intermittent noncompliance with his medication and lack of neurology follow-up. ED Medical Decision Making - Lab Data Result diagrams: 07/25/21 10:16 07/25/21 10:16 Lab Results 07/25/21 07/25/21 07/25/21 Range/Units 10:16 10:16 10:16 WBC 9.6 (4.5-11.0) K/mm3 RBC 4.86 (3.65-5.03) M/mm3 Hgb 14.5 (11.8-15.2) gm/dl Hct 46.3 H (35.5-45.6) % MCV 95 H (84-94) fl MCH 30 (28-32) pg MCHC 31 L (32-34) % RDW 14.5 (13.2-15.2) % Plt Count 303 (140-440) K/mm3 Lymph % (Auto) 22.9 (13.4-35.0) % [place] % (Auto) 12.0 H (0.0-7.3) % Eos % (Auto) 2.6 (0.0-4.3) % Baso % (Auto) 0.6 (0.0-1.8) % Lymph # (Auto) 2.2 (1.2-5.4) K/mm3 [place] # (Auto) 1.2 H (0.0-0.8) K/mm3 Eos # (Auto) 0.2 (0.0-0.4) K/mm3 Baso # (Auto) 0.1 (0.0-0.1) K/mm3 Seg Neutrophils % 61.9 (40.0-70.0) % Seg Neutrophils # 6.0 (1.8-7.7) K/mm3 Sodium 141 (137-145) mmol/L Potassium 3.7 (3.6-5.0) mmol/L Chloride 102.6 (98-107) mmol/L Carbon Dioxide 13 L (22-30) mmol/L Anion Gap 29 mmol/L BUN 10 (9-20) mg/dL Creatinine 0.9 (0.8-1.3) mg/dL Estimated GFR > 60 ml/min BUN/Creatinine Ratio 11 % Glucose 129 H (75-100) mg/dL Calcium 9.2 (8.4-10.2) mg/dL Magnesium 2.10 (1.7-2.3) mg/dL - Medical Decision Making 31-year-old male with history of seizures starting this year with repeated ER visits for the same and medication noncompliance. Patient with seizure in the ED shortly after arrival requiring Ativan and Keppra. He was observed for several hours and did not have any further seizure activity or physical complaints. He will be discharged with additional Keppra and neurology follow- up. Labs unremarkable with exception of mild anion gap acidosis likely secondary to lactic acidosis from multiple seizures. Critical Care Time: No Critical care attestation.: If time is entered above; I have spent that time in minutes in the direct care of this critically ill patient, excluding procedure time. ED Disposition Clinical Impression: Seizure, Noncompliance with medication regimen Disposition: HOME / SELF CARE / HOMELESS Is pt being admited?: No Condition: Stable Instructions: Epilepsy, Qvjc-mg-Phud Additional Instructions: Take the medication as prescribed. Follow-up with your doctor or doctor/clinic provided. Return if symptoms worsen as indicated by your discharge instructions. Prescriptions: levETIRAcetam [Keppra TAB] 500 mg PO BID #60 tablet Referrals: PRIMARY MD MAHESH [Primary Care Provider] - 3-5 Days YAHIR CAMILO MD [Staff Physician] - 3-5 Days (Neurologist) [facility] [Provider Group] - 3-5 Days (Primary care clinic) BIANCA AWAD MD [Staff Physician] - 3-5 Days Time of Disposition: 15:32
== END 2021-07-25 15:54 | disposition home or self-care (01) ==
LOC: ED 09:05
DX: R56.9 Unspecified convulsions (principal); Z91.14 Patient's other noncompliance with medication regimen; M19.90 Unspecified osteoarthritis, unspecified site; F12.90 Cannabis use, unspecified, uncomplicated
CPT/HCPCS: 36415; 71045; 80048; 83735; 85025; 96374; 96375; 99284; J1953; J2060

== ENCOUNTER 2021-12-12 09:11 | Emergency (ER) | payer SELFPAY ==
[2021-12-12] MEDS ORDERED: levETIRAcetam 1000 MG/NS 0.75% 1,000 MG/100 ML BAG IV ONE ×2 (09:35→09:37)
[2021-12-12] MEDS ORDERED: SODIUM CHLORIDE 0.9% 1000 ML 1,000 ML IV ONE (10:02)
--- NOTE | 2021-12-12 10:07 | Emergency Department Report ---
ED Seizure HPI - General Chief Complaint: Seizure Stated Complaint: SEIZURE Time Seen by Provider: 12/12/21 10:01 Source: patient, EMS Mode of arrival: Stretcher Limitations: No Limitations - History of Present Illness Initial Comments: 31-year-old male with a history of seizure who now presents with seizure episodes that happened this morning. Pt was told by his brother who was in the house with him. Pt at this time denies any other symptoms other than being weak. He takes Keppra and reports being compliant with his medication. Patient reported drinking alcohol socially and from time to time and engage in using marijuana. No chest pain, shortness of breath or palpitation reported. Patient also denies any other modifying or associated factors. - Related Data Previous Rx's Medication Instructions Recorded Last Taken Type Sulfamethoxazole/Trimethoprim 1 each PO BID 7 Days #14 tablet 04/08/19 Unknown Rx [Bactrim DS TAB] methOCARBAMOL [Robaxin TAB] 500 mg PO Q6H PRN #30 tablet 10/17/20 Unknown Rx levETIRAcetam [Keppra TAB] 500 mg PO BID #60 tablet 05/02/21 Unknown Rx levETIRAcetam [Keppra TAB] 500 mg PO BID #60 tablet 07/25/21 Unknown Rx Allergies Allergy/AdvReac Type Severity Reaction Status Date / Time No Known Allergies Allergy Verified 12/12/21 09:14 ED Review of Systems ROS: Stated complaint: SEIZURE Other details as noted in HPI Comment: All other systems reviewed and negative Neurological: weakness (Generalized muscle weakness), other (Seizure) ED Past Medical Hx - Past Medical History Previous Medical History?: Yes Hx Arthritis: Yes Hx Seizures: Yes ("can't remember last time I had seizure medicine") - Social History Smoking Status: Current Every Day Smoker Substance Use Type: Marijuana - Medications Home Medications: Home Medications Medication Instructions Recorded Confirmed Last Taken Type Sulfamethoxazole/Trimethoprim 1 each PO BID 7 Days #14 tablet 04/08/19 Unknown Rx [Bactrim DS TAB] methOCARBAMOL [Robaxin TAB] 500 mg PO Q6H PRN #30 tablet 10/17/20 Unknown Rx levETIRAcetam [Keppra TAB] 500 mg PO BID #60 tablet 05/02/21 Unknown Rx levETIRAcetam [Keppra TAB] 500 mg PO BID #60 tablet 07/25/21 Unknown Rx ED Physical Exam - General Limitations: No Limitations General appearance: alert, in no apparent distress - Head Head exam: Present: atraumatic, normal inspection - Eye Eye exam: Present: normal appearance Pupils: Present: normal accommodation - ENT ENT exam: Present: normal exam, normal orophraynx, mucous membranes moist - Neck Neck exam: Present: normal inspection, full ROM. Absent: tenderness, meningismus - Respiratory Respiratory exam: Present: normal lung sounds bilaterally. Absent: respiratory distress, accessory muscle use - Cardiovascular Cardiovascular Exam: Present: regular rate, normal rhythm, normal heart sounds - GI/Abdominal GI/Abdominal exam: Present: soft, normal bowel sounds. Absent: distended, tenderness - Extremities Exam Extremities exam: Present: normal inspection, full ROM, normal capillary refill. Absent: tenderness, pedal edema - Back Exam Back exam: Present: normal inspection. Absent: tenderness - Neurological Exam Neurological exam: Present: alert, oriented X3 - Psychiatric Psychiatric exam: Present: normal affect, normal mood. Absent: agitated - Skin Skin exam: Present: warm, intact, normal color ED Course Vital Signs 12/12/21 12/12/21 12/12/21 09:12 09:30 09:43 Temperature 98.1 F Pulse Rate 62 56 L Respiratory 10 L Rate Blood Pressure 117/68 Blood Pressure 124/78 [Right] O2 Sat by Pulse 98 100 99 Oximetry - Reevaluation(s) Reevaluation #1: 12/12/21 10:08 Here with an episode of seizure with a history of seizure currently on Keppra--reports compliance with medication--we will go ahead and order routine labs that include TSH, CBC, CMP, UA and UDS for any correctable cause. In the meantime we will go ahead and order 1 g of Keppra bolus and IV fluid normal saline hydration while waiting for the above labs. Reevaluation #2: 12/12/21 12:05 Lab reviewed and noted with slightly elevated AST--this could be as a result of postictal--patient stable to be discharged with close follow-up with her primary doctor/neurology-- ED Medical Decision Making - Lab Data Result diagrams: 12/12/21 10:05 12/12/21 10:05 Critical care attestation.: If time is entered above; I have spent that time in minutes in the direct care of this critically ill patient, excluding procedure time. ED Disposition Clinical Impression: Seizure Disposition: 01 HOME / SELF CARE / HOMELESS Is pt being admited?: No Does the pt Need Aspirin: No Condition: Stable Instructions: Seizure, Adult, [id number] Additional Instructions: Increase your daily fluid to help your hydration Continue your seizure medicine as prescribed by your neurologist/primary doctor Please call and schedule follow-up with your primary doctor/neurology in the next 3 to 5 days for progress Please do not hesitate to call or return to emergency room if your symptoms worsen Referrals: PRIMARY CARE, [Primary Care Provider] - 3-5 Days
[2021-12-12 10:41] LABS: INR 0.88 (0.87-1.13)
[2021-12-12 10:42] LABS: Partial Thromboplastin Time 25.3 Sec. (24.2-36.6)
[2021-12-12 10:46] LABS: Hematocrit 42.4 % (35.5-45.6); Mean Corpuscular HGB Conc 33 % (32-34); Mean Corpuscular Volume 90 fl (84-94); Red Blood Count 4.71 M/mm3 (3.65-5.03); Red Cell Distribution Width 13.6 % (13.2-15.2)
[2021-12-12 11:18] LABS: Platelet Count 161 K/mm3 (140-440)
[2021-12-12 11:50] LABS: Alanine Aminotransferase 8 units/L (7-56); Albumin 4.9 g/dL (3.9-5); BUN/Creatinine Ratio 17; Blood Urea Nitrogen 20 mg/dL (9-20); Calcium 9.8 mg/dL (8.4-10.2); Hemolysis Index 20
[2021-12-12 12:17] VITALS: BP 115/65
== END 2021-12-12 14:06 | disposition home or self-care (01) ==
LOC: ED 09:11
DX: G40.909 Epilepsy, unspecified, not intractable, without status epilepticus (principal); F17.200 Nicotine dependence, unspecified, uncomplicated; F12.90 Cannabis use, unspecified, uncomplicated; Z79.899 Other long term (current) drug therapy
CPT/HCPCS: 36415; 80053; 80177; 83880; 84443; 84484; 85025; 85610; 85730; 96361; 96374; 99284; J1953; J7030; 80320; G0480

== ENCOUNTER 2021-12-13 17:20 | Emergency (ER) | payer SELFPAY ==
[2021-12-13] MEDS ORDERED: levETIRAcetam 1000 MG/NS 0.75% 1,000 MG/100 ML BAG IV ONE (18:11)
[2021-12-13] MEDS ORDERED: SODIUM CHLORIDE 0.9% 1000 ML 1,000 ML IV ONE (18:11)
--- NOTE | 2021-12-13 18:21 | Emergency Department Report ---
ED Seizure HPI - General Chief Complaint: Seizure Stated Complaint: SEIZURE Time Seen by Provider: 12/13/21 18:09 Source: EMS Mode of arrival: Stretcher Limitations: No Limitations - History of Present Illness Initial Comments: 31-year-old male with a history of seizure who presented with seizure episode today. Patient is currently on Keppra but says it ran out of his medication has not been taking any of his antiseizure medicine. Patient supposed to take 500 mg of Keppra twice a day. Patient was seen in the emergency room yesterday and was stabilized before discharge. He still have not had his medication feel at this time. No fever or chills reported. No other modifying or positive factors reported. - Related Data Previous Rx's Medication Instructions Recorded Last Taken Type Sulfamethoxazole/Trimethoprim 1 each PO BID 7 Days #14 tablet 04/08/19 Unknown Rx [Bactrim DS TAB] methOCARBAMOL [Robaxin TAB] 500 mg PO Q6H PRN #30 tablet 10/17/20 Unknown Rx levETIRAcetam [Keppra TAB] 500 mg PO BID #60 tablet 07/25/21 Unknown Rx levETIRAcetam [Keppra TAB] 500 mg PO BID #60 tablet 12/13/21 Unknown Rx Allergies Allergy/AdvReac Type Severity Reaction Status Date / Time No Known Allergies Allergy Verified 12/12/21 09:14 ED Review of Systems ROS: Stated complaint: SEIZURE Other details as noted in HPI Comment: All other systems reviewed and negative Neurological: other (seizure ) ED Past Medical Hx - Past Medical History Hx Arthritis: Yes Hx Seizures: Yes ("can't remember last time I had seizure medicine") - Surgical History Past Surgical History?: No - Social History Smoking Status: Current Every Day Smoker Substance Use Type: Marijuana - Medications Home Medications: Home Medications Medication Instructions Recorded Confirmed Last Taken Type Sulfamethoxazole/Trimethoprim 1 each PO BID 7 Days #14 tablet 04/08/19 Unknown Rx [Bactrim DS TAB] methOCARBAMOL [Robaxin TAB] 500 mg PO Q6H PRN #30 tablet 10/17/20 Unknown Rx levETIRAcetam [Keppra TAB] 500 mg PO BID #60 tablet 07/25/21 Unknown Rx levETIRAcetam [Keppra TAB] 500 mg PO BID #60 tablet 12/13/21 Unknown Rx ED Physical Exam - General Limitations: No Limitations General appearance: alert, in no apparent distress - Head Head exam: Present: normal inspection - Eye Eye exam: Present: normal appearance Pupils: Present: normal accommodation - ENT ENT exam: Present: normal exam, normal orophraynx, mucous membranes moist - Neck Neck exam: Present: normal inspection, full ROM. Absent: tenderness, meningismus - Respiratory Respiratory exam: Present: normal lung sounds bilaterally. Absent: respiratory distress, accessory muscle use - Cardiovascular Cardiovascular Exam: Present: regular rate, normal rhythm, normal heart sounds - GI/Abdominal GI/Abdominal exam: Present: soft, normal bowel sounds. Absent: distended, tenderness - Extremities Exam Extremities exam: Present: normal inspection, full ROM, normal capillary refill. Absent: tenderness - Back Exam Back exam: Present: normal inspection, full ROM. Absent: CVA tenderness (R), CVA tenderness (L) - Neurological Exam Neurological exam: Present: alert, oriented X3 - Psychiatric Psychiatric exam: Present: normal affect, normal mood - Skin Skin exam: Present: warm, intact, normal color ED Course Vital Signs 12/13/21 17:32 Temperature 98 F Pulse Rate 68 Respiratory 17 Rate Blood Pressure 110/70 [Right] O2 Sat by Pulse 98 Oximetry - Reevaluation(s) Reevaluation #1: 12/13/21 18:19 here with seizure episode with history of seizure -- suppose to be on Keppra 500mg daily but have not taken in a while-- will go ahead and check routine labs including thyroid profile TSH, and CBC, CMP and UA with drug screen for any infectious process or electrolyte abnormality as a cause. We will also hydrate with IV fluids normal saline considering postictal muscle injury. Reevaluation #2: 12/13/21 20:30 Noted with unremarkable labs except elevated TSH asked 4.630 we will go ahead and order free T4 to rule out any hypothyroidism- Reevaluation #3: 12/13/21 23:48 Pt free T4 noted normal so pt discharged home with close follow up and prescription for Keppra 500mg PO BID x 30 days to give him to schedule follow up with his PCP/neurologist. ED Medical Decision Making - Lab Data Result diagrams: 12/13/21 18:24 12/13/21 18:24 Critical care attestation.: If time is entered above; I have spent that time in minutes in the direct care of this critically ill patient, excluding procedure time. ED Disposition Clinical Impression: Seizure Disposition: 01 HOME / SELF CARE / HOMELESS Is pt being admited?: No Does the pt Need Aspirin: No Condition: Stable Instructions: Seizure, Adult, [id number] Additional Instructions: It is very important that you take your medication as prescribed to prevent any of your seizure symptoms Increase your daily fluid to help your hydration Please call and schedule follow-up with your primary doctor/neurology in the next 3 to 5 days for progress Please do not hesitate to call or return to emergency room if your symptoms worsen Prescriptions: levETIRAcetam [Keppra TAB] 500 mg PO BID #60 tablet Referrals: PRIMARY CARE, [Primary Care Provider] - 3-5 Days Time of Disposition: 23:50
[2021-12-13 19:14] LABS: Eosinophils # (Auto) 0.1 K/mm3 (0.0-0.4); Eosinophils % (Auto) 2.6 % (0.0-4.3); Hematocrit 43.9 % (35.5-45.6); Hemoglobin 14.6 gm/dl (11.8-15.2); Lymphocytes # (Auto) 1.4 K/mm3 (1.2-5.4); Lymphocytes % (Auto) 30.3 % (13.4-35.0); Mean Corpuscular HGB Conc 33 % (32-34); Mean Corpuscular Volume 91 fl (84-94); Monocytes # (Auto) 0.6 K/mm3 (0.0-0.8); Monocytes % (Auto) 13.9 % (0.0-7.3); Platelet Count 225 K/mm3 (140-440); Red Blood Count 4.84 M/mm3 (3.65-5.03); Red Cell Distribution Width 13.4 % (13.2-15.2)
[2021-12-13 19:23] LABS: INR 0.95 (0.87-1.13)
[2021-12-13 19:24] LABS: Partial Thromboplastin Time 23.6 Sec. (24.2-36.6)
[2021-12-13 19:36] LABS: Alanine Aminotransferase 33 units/L (7-56); BUN/Creatinine Ratio 26; Blood Urea Nitrogen 23 mg/dL (9-20); Hemolysis Index 4
[2021-12-13 21:33] LABS: Bilirubin,Urine NEG (Negative); Blood,Urine NEG (Negative); Color,Urine Yellow (Yellow); Mucus,Urine 3+ /HPF
[2021-12-13 21:55] LABS: Amphetamine Screen,Urine PRESUMPTIVE NEGATIVE; Benzodiazepines Screen,Urine PRESUMPTIVE NEGATIVE; Cannabinoid Screen,Urine PRESUMPTIVE POSITIVE; Cocaine Screen,Urine PRESUMPTIVE NEGATIVE; Methadone Screen,Urine PRESUMPTIVE NEGATIVE; Opiate Screen,Urine PRESUMPTIVE NEGATIVE
[2021-12-14 00:31] VITALS: BP 122/74
== END 2021-12-14 00:31 | disposition home or self-care (01) ==
LOC: ED 17:20
DX: R56.9 Unspecified convulsions (principal); M19.90 Unspecified osteoarthritis, unspecified site; Z79.899 Other long term (current) drug therapy; F17.200 Nicotine dependence, unspecified, uncomplicated
CPT/HCPCS: 36415; 80053; 80177; 80307; 81001; 83880; 84439; 84443; 85025; 85610; 85730; 96365; 99284; J1953; J7030; 80320; G0480

== ENCOUNTER 2022-01-23 21:59 | Emergency (ER) | payer SELFPAY ==
[2022-01-23] MEDS ORDERED: levETIRAcetam 1000 MG/NS 0.75% 1,000 MG/100 ML BAG IV ONE (22:45)
[2022-01-23 23:24] LABS: Basophils % (Auto) 0.4 % (0.0-1.8); Eosinophils # (Auto) 0.1 K/mm3 (0.0-0.4); Eosinophils % (Auto) 1.8 % (0.0-4.3); Hemoglobin 13.3 gm/dl (11.8-15.2); Lymphocytes # (Auto) 0.5 K/mm3 (1.2-5.4); Lymphocytes % (Auto) 6.6 % (13.4-35.0); Mean Corpuscular HGB Conc 32 % (32-34); Mean Corpuscular Volume 91 fl (84-94); Monocytes # (Auto) 0.6 K/mm3 (0.0-0.8); Monocytes % (Auto) 8.1 % (0.0-7.3); Platelet Count 227 K/mm3 (140-440); Red Cell Distribution Width 13.2 % (13.2-15.2)
[2022-01-23 23:44] LABS: BUN/Creatinine Ratio 9; Blood Urea Nitrogen 8 mg/dL (9-20); Calcium 9.3 mg/dL (8.4-10.2); Hemolysis Index 3
--- NOTE | 2022-01-24 00:03 | Emergency Department Report ---
ED Seizure HPI - General Chief Complaint: Seizure Stated Complaint: SEIZURE Time Seen by Provider: 01/23/22 23:36 Source: EMS Mode of arrival: Stretcher Limitations: Other - History of Present Illness Initial Comments: 32-year-old male with a past medical history seizures presents to the hospital after having 2 seizures today. Patient is postictal upon arrival. Reported noncompliance with Keppra. To my evaluation patient is oriented to self and is drowsy and falls asleep shortly after arousal. No pain reported. - Related Data Previous Rx's Medication Instructions Recorded Last Taken Type Sulfamethoxazole/Trimethoprim 1 each PO BID 7 Days #14 tablet 04/08/19 Unknown Rx [Bactrim DS TAB] methOCARBAMOL [Robaxin TAB] 500 mg PO Q6H PRN #30 tablet 10/17/20 Unknown Rx levETIRAcetam [Keppra TAB] 500 mg PO BID #60 tablet 12/13/21 Unknown Rx levETIRAcetam [Keppra TAB] 500 mg PO BID #60 tablet 01/24/22 Unknown Rx Allergies Allergy/AdvReac Type Severity Reaction Status Date / Time No Known Allergies Allergy Verified 12/12/21 09:14 ED Review of Systems ROS: Stated complaint: SEIZURE Other details as noted in HPI Comment: Unobtainable due to pts medical conditions ED Past Medical Hx - Past Medical History Previous Medical History?: Yes Hx Arthritis: Yes Hx Seizures: Yes ("can't remember last time I had seizure medicine") - Surgical History Past Surgical History?: No - Social History Smoking Status: Current Every Day Smoker Substance Use Type: Marijuana - Medications Home Medications: Home Medications Medication Instructions Recorded Confirmed Last Taken Type Sulfamethoxazole/Trimethoprim 1 each PO BID 7 Days #14 tablet 04/08/19 Unknown Rx [Bactrim DS TAB] methOCARBAMOL [Robaxin TAB] 500 mg PO Q6H PRN #30 tablet 10/17/20 Unknown Rx levETIRAcetam [Keppra TAB] 500 mg PO BID #60 tablet 12/13/21 Unknown Rx levETIRAcetam [Keppra TAB] 500 mg PO BID #60 tablet 01/24/22 Unknown Rx ED Physical Exam - General Limitations: Other - Other Other exam information: General: No acute distress Head: Atraumatic Eyes: normal appearance ENT: Moist mucous membranes Neck: Normal appearance, no midline tenderness Chest: Clear to auscultation bilaterally CV: Regular rate and rhythm Abdomen: Soft, normal bowel sounds, nontender, nondistended, no rebound or guarding Back: Normal inspection Extremity: Normal inspection, full range of motion Neuro: Drowsy but arousable. Oriented to self. No facial asymmetry. Equal handgrip. Speech clear Psych: Appropriate behavior Skin: No rash ED Course Vital Signs 01/23/22 01/23/22 01/24/22 22:05 22:31 00:02 Temperature 97.6 F Pulse Rate 86 65 Respiratory 15 Rate Blood Pressure Blood Pressure 124/76 [Left] O2 Sat by Pulse 100 96 Oximetry 01/24/22 01/24/22 01/24/22 00:16 00:30 00:42 Temperature Pulse Rate 70 63 Respiratory 14 15 Rate Blood Pressure Blood Pressure 102/51 [Left] O2 Sat by Pulse 96 98 Oximetry 01/24/22 01/24/22 01/24/22 00:46 01:00 01:16 Temperature Pulse Rate 61 78 62 Respiratory 15 13 15 Rate Blood Pressure 102/51 106/46 111/61 Blood Pressure [Left] O2 Sat by Pulse 98 Oximetry 01/24/22 01/24/22 01/24/22 01:30 01:46 02:00 Temperature Pulse Rate 61 65 65 Respiratory 14 13 16 Rate Blood Pressure 108/58 106/64 109/61 Blood Pressure [Left] O2 Sat by Pulse Oximetry 01/24/22 01/24/22 01/24/22 02:16 02:30 02:46 Temperature Pulse Rate 63 59 L 57 L Respiratory 13 15 16 Rate Blood Pressure 105/62 111/60 107/65 Blood Pressure [Left] O2 Sat by Pulse 72 L 100 100 Oximetry 01/24/22 01/24/22 01/24/22 03:00 03:16 03:30 Temperature Pulse Rate 63 61 62 Respiratory 15 15 14 Rate Blood Pressure 115/63 111/63 106/57 Blood Pressure [Left] O2 Sat by Pulse 95 91 Oximetry 01/24/22 01/24/22 03:46 04:00 Temperature Pulse Rate 58 L 60 Respiratory 12 12 Rate Blood Pressure 107/62 116/67 Blood Pressure [Left] O2 Sat by Pulse 83 L 96 Oximetry - Reevaluation(s) Reevaluation #1: 01/24/22 04:46 Patient more alert at this time. No physical complaints ED Medical Decision Making - Lab Data Result diagrams: 01/23/22 22:57 01/23/22 22:57 Lab Results 01/23/22 01/23/22 01/23/22 Range/Units 22:57 22:57 22:57 WBC 8.0 (4.5-11.0) K/mm3 RBC 4.50 (3.65-5.03) M/mm3 Hgb 13.3 (11.8-15.2) gm/dl Hct 41.0 (35.5-45.6) % MCV 91 (84-94) fl MCH 30 (28-32) pg MCHC 32 (32-34) % RDW 13.2 (13.2-15.2) % Plt Count 227 (140-440) K/mm3 Lymph % (Auto) 6.6 L (13.4-35.0) % Lucas % (Auto) 8.1 H (0.0-7.3) % Eos % (Auto) 1.8 (0.0-4.3) % Baso % (Auto) 0.4 (0.0-1.8) % Lymph # (Auto) 0.5 L (1.2-5.4) K/mm3 Lucas # (Auto) 0.6 (0.0-0.8) K/mm3 Eos # (Auto) 0.1 (0.0-0.4) K/mm3 Baso # (Auto) 0.0 (0.0-0.1) K/mm3 Seg Neutrophils % 83.1 H (40.0-70.0) % Seg Neutrophils # 6.7 (1.8-7.7) K/mm3 Sodium 137 (137-145) mmol/L Potassium 4.4 (3.6-5.0) mmol/L Chloride 102.3 (98-107) mmol/L Carbon Dioxide 22 (22-30) mmol/L Anion Gap 17 mmol/L BUN 8 L (9-20) mg/dL Creatinine 0.9 (0.8-1.3) mg/dL Estimated GFR > 60 ml/min BUN/Creatinine Ratio 9 % Glucose 97 (75-100) mg/dL Calcium 9.3 (8.4-10.2) mg/dL Magnesium 2.10 (1.7-2.3) mg/dL Urine Color (Yellow) Urine Turbidity (Clear) Urine pH (5.0-7.0) Ur Specific [place] (1.003-1.030) Urine Protein (Negative) mg/dL Urine Glucose (UA) (Negative) mg/dL Urine Ketones (Negative) mg/dL Urine Blood (Negative) Urine Nitrite (Negative) Urine Bilirubin (Negative) Urine Urobilinogen (<2.0) mg/dL Ur Leukocyte Esterase (Negative) Urine WBC (Auto) (0.0-6.0) /HPF Urine RBC (Auto) (0.0-6.0) /HPF Urine Bacteria (Auto) (Negative) /HPF Hyaline Casts /LPF Urine Mucus /HPF Urine Sperm (ROUSTABOUT HAND) /HPF Urine Opiates Screen Urine Methadone Screen Ur Barbiturates Screen Ur Phencyclidine Scrn Ur Amphetamines Screen U Benzodiazepines Scrn Urine Cocaine Screen U Marijuana (THC) Screen Drugs of Abuse Note 01/23/22 01/23/22 Range/Units Unknown Unknown WBC (4.5-11.0) K/mm3 RBC (3.65-5.03) M/mm3 Hgb (11.8-15.2) gm/dl Hct (35.5-45.6) % MCV (84-94) fl MCH (28-32) pg MCHC (32-34) % RDW (13.2-15.2) % Plt Count (140-440) K/mm3 Lymph % (Auto) (13.4-35.0) % Lucas % (Auto) (0.0-7.3) % Eos % (Auto) (0.0-4.3) % Baso % (Auto) (0.0-1.8) % Lymph # (Auto) (1.2-5.4) K/mm3 Lucas # (Auto) (0.0-0.8) K/mm3 Eos # (Auto) (0.0-0.4) K/mm3 Baso # (Auto) (0.0-0.1) K/mm3 Seg Neutrophils % (40.0-70.0) % Seg Neutrophils # (1.8-7.7) K/mm3 Sodium (137-145) mmol/L Potassium (3.6-5.0) mmol/L Chloride (98-107) mmol/L Carbon Dioxide (22-30) mmol/L Anion Gap mmol/L BUN (9-20) mg/dL Creatinine (0.8-1.3) mg/dL Estimated GFR ml/min BUN/Creatinine Ratio % Glucose (75-100) mg/dL Calcium (8.4-10.2) mg/dL Magnesium (1.7-2.3) mg/dL Urine Color Yellow (Yellow) Urine Turbidity Clear (Clear) Urine pH 5.0 (5.0-7.0) Ur Specific [place] 1.013 (1.003-1.030) Urine Protein <15 mg/dl (Negative) mg/dL Urine Glucose (UA) Neg (Negative) mg/dL Urine Ketones Tr (Negative) mg/dL Urine Blood Neg (Negative) Urine Nitrite Neg (Negative) Urine Bilirubin Neg (Negative) Urine Urobilinogen < 2.0 (<2.0) mg/dL Ur Leukocyte Esterase Neg (Negative) Urine WBC (Auto) 2.0 (0.0-6.0) /HPF Urine RBC (Auto) 2.0 (0.0-6.0) /HPF Urine Bacteria (Auto) 1+ (Negative) /HPF Hyaline Casts 5 /LPF Urine Mucus 2+ /HPF Urine Sperm 2+ (ROUSTABOUT HAND) /HPF Urine Opiates Screen Presumptive negative Urine Methadone Screen Presumptive negative Ur Barbiturates Screen Presumptive negative Ur Phencyclidine Scrn Presumptive negative Ur Amphetamines Screen Presumptive negative U Benzodiazepines Scrn Presumptive negative Urine Cocaine Screen Presumptive negative U Marijuana (THC) Screen Presumptive positive Drugs of Abuse Note Disclamer - Medical Decision Making 32-year-old male presents to the hospital with seizures secondary to medication noncompliance. Postictal upon arrival. Observed until baseline. Labs unremarkable. Will discharge with meds Critical Care Time: No Critical care attestation.: If time is entered above; I have spent that time in minutes in the direct care of this critically ill patient, excluding procedure time. ED Disposition Clinical Impression: Seizure, Noncompliance with medication regimen Disposition: 01 HOME / SELF CARE / HOMELESS Is pt being admited?: No Does the pt Need Aspirin: No Condition: Stable Instructions: Seizure, Adult Additional Instructions: Take the medication as prescribed. Follow-up with your doctor or doctor/clinic provided. Return if symptoms worsen as indicated by your discharge instructions. Prescriptions: levETIRAcetam [Keppra TAB] 500 mg PO BID #60 tablet Referrals: YAHIR CAMILO MD [Staff Physician] - 3-5 Days (Neurologist) Time of Disposition: 04:47
[2022-01-24 01:52] LABS: Bilirubin,Urine NEG (Negative); Blood,Urine NEG (Negative); Color,Urine Yellow (Yellow); Protein,Urine <15 mg/dL mg/dL (Negative); Urobilinogen,Urine < 2.0 mg/dL (<2.0)
[2022-01-24 01:54] LABS: Bacteria,Urine 1+ /HPF (Negative); Hyaline Casts,Urine 5 /LPF; Mucus,Urine 2+ /HPF; Sperm,Urine 2+ /HPF (NP)
[2022-01-24 02:07] LABS: Amphetamine Screen,Urine PRESUMPTIVE NEGATIVE; Benzodiazepines Screen,Urine PRESUMPTIVE NEGATIVE; Cannabinoid Screen,Urine PRESUMPTIVE POSITIVE; Cocaine Screen,Urine PRESUMPTIVE NEGATIVE; Methadone Screen,Urine PRESUMPTIVE NEGATIVE; Opiate Screen,Urine PRESUMPTIVE NEGATIVE
[2022-01-24 05:20] VITALS: BP 101/48
== END 2022-01-24 05:20 | disposition home or self-care (01) ==
LOC: ED 21:59
DX: R56.9 Unspecified convulsions (principal); Z91.14 Patient's other noncompliance with medication regimen; M19.90 Unspecified osteoarthritis, unspecified site; F17.290 Nicotine dependence, other tobacco product, uncomplicated
CPT/HCPCS: 36415; 80048; 80307; 81001; 83735; 85025; 96374; 99284; J1953

== ENCOUNTER 2022-02-10 15:07 | Emergency (ER) | payer SELFPAY ==
[2022-02-10] MEDS ORDERED: levETIRAcetam 1000 MG/NS 0.75% 1,000 MG/100 ML BAG IV ONE (16:11)
--- NOTE | 2022-02-10 17:11 | Emergency Department Report ---
ED General Adult HPI - General Chief complaint: Seizure Stated complaint: SEIZURE PUI?: No Time Seen by Provider: 02/10/22 16:03 Source: patient, EMS Mode of arrival: Stretcher Limitations: No Limitations - History of Present Illness Initial comments: 32-year-old male with medical history of seizure came in today with concerns of seizure episode that was witnessed. According to the nurse and also patient he has been on his medication which is Keppra. Patient denies any other discomfort. Patient denies fever chill night sweat dizziness blurred vision lightheadedness headache tinnitus ear pain runny nose sore throat chest pain palpitation short breath cough abdominal pain nausea vomiting diarrhea constipation joint pain muscle pain new rash heat or cold intolerance - Related Data Previous Rx's Medication Instructions Recorded Last Taken Type levETIRAcetam [Keppra TAB] 500 mg PO BID 30 Days #60 tablet 02/10/22 Unknown Rx Allergies Allergy/AdvReac Type Severity Reaction Status Date / Time No Known Allergies Allergy Verified 02/10/22 15:09 ED Review of Systems ROS: Stated complaint: SEIZURE Other details as noted in HPI Comment: All other systems reviewed and negative Constitutional: no symptoms reported, see HPI Eyes: as per HPI ENT: as per HPI Respiratory: no symptoms reported Cardiovascular: as per HPI Endocrine: no symptoms reported Gastrointestinal: as per HPI Musculoskeletal: as per HPI Skin: as per HPI Neurological: other (seizure) Psychiatric: as per HPI Hematological/Lymphatic: as per HPI ED Past Medical Hx - Past Medical History Previous Medical History?: Yes Hx Seizures: Yes - Medications Home Medications: Home Medications Medication Instructions Recorded Confirmed Last Taken Type levETIRAcetam [Keppra TAB] 500 mg PO BID 30 Days #60 tablet 02/10/22 Unknown Rx ED Physical Exam - General Limitations: No Limitations General appearance: alert, in no apparent distress - Head Head exam: Present: atraumatic, normocephalic, normal inspection - Eye Eye exam: Present: normal appearance, PERRL, EOMI Pupils: Present: normal accommodation - ENT ENT exam: Present: normal exam - Neck Neck exam: Present: normal inspection, tenderness, full ROM - Respiratory Respiratory exam: Present: normal lung sounds bilaterally - Cardiovascular Cardiovascular Exam: Present: regular rate, normal rhythm - GI/Abdominal GI/Abdominal exam: Present: soft - Extremities Exam Extremities exam: Present: normal inspection - Back Exam Back exam: Present: normal inspection - Neurological Exam Neurological exam: Present: alert, oriented X3, CN II-XII intact - Psychiatric Psychiatric exam: Present: normal affect - Skin Skin exam: Present: normal color ED Course Vital Signs 02/10/22 02/10/22 02/10/22 15:07 15:22 15:31 Temperature 98.5 F Pulse Rate 82 73 75 Respiratory 20 Rate Blood Pressure 113/63 Blood Pressure 109/56 [Left] O2 Sat by Pulse 95 97 Oximetry 02/10/22 02/10/22 02/10/22 15:45 16:01 16:15 Temperature Pulse Rate 74 66 65 Respiratory Rate Blood Pressure 113/63 110/58 110/58 Blood Pressure [Left] O2 Sat by Pulse 95 96 Oximetry 02/10/22 02/10/22 02/10/22 16:30 16:46 17:06 Temperature Pulse Rate 61 Respiratory 14 Rate Blood Pressure 111/70 111/70 Blood Pressure [Left] O2 Sat by Pulse 96 96 Oximetry - Reevaluation(s) Reevaluation #1: 02/10/22 18:43 Seizure free since in the ER; work up in the Emergency Room has been unremarkable. Will discharge patient with Keppra 500mg BID and follow up with his neurologist or one of his choice. 02/10/22 18:44 ED Medical Decision Making - Lab Data Result diagrams: 02/10/22 16:45 02/10/22 16:45 Critical care attestation.: If time is entered above; I have spent that time in minutes in the direct care of this critically ill patient, excluding procedure time. ED Disposition Clinical Impression: Seizure Disposition: 01 HOME / SELF CARE / HOMELESS Is pt being admited?: No Does the pt Need Aspirin: No Condition: Stable Instructions: Seizure, Adult, [id number] Additional Instructions: Please take Keppra 500mg every 12 hours and follow up with neurologist of your choice to be seen within 3 to 5 days for further outpatient evaluation. Prescriptions: levETIRAcetam [Keppra TAB] 500 mg PO BID 30 Days #60 tablet Time of Disposition: 18:45
--- NOTE | 2022-02-10 17:22 | Cat Scan Report ---
CT head/brain wo con INDICATION: seiuzre. TECHNIQUE: Routine CT head. All CT scans at this location are performed using CT dose reduction for A VENECIA by means of automated exposure control. COMPARISON: 06/12/2021 FINDINGS: Intracranial: Graves-white matter differentiation is maintained. No intracranial hemorrhage. No extra a xial collection. No hydrocephalus. No herniation. Sinuses: Paranasal sinuses and mastoid air cells are essentially clear. Orbits: Globes are intact. Calvarium: No acute fracture. IMPRESSION: 1. No acute intracranial abnormality. Signer Name: Sarbjit Raphael MD Signed: 02/10/2022 5:18 PM Workstation Name: [id number]
[2022-02-10 17:38] LABS: Basophils % (Auto) 0.7 % (0.0-1.8); Eosinophils # (Auto) 0.2 K/mm3 (0.0-0.4); Eosinophils % (Auto) 3.3 % (0.0-4.3); Hematocrit 41.4 % (35.5-45.6); Hemoglobin 13.8 gm/dl (11.8-15.2); Lymphocytes % (Auto) 18.1 % (13.4-35.0); Mean Corpuscular HGB Conc 33 % (32-34); Mean Corpuscular Volume 90 fl (84-94); Monocytes # (Auto) 0.5 K/mm3 (0.0-0.8); Monocytes % (Auto) 8.3 % (0.0-7.3); Platelet Count 227 K/mm3 (140-440); Red Blood Count 4.58 M/mm3 (3.65-5.03); Red Cell Distribution Width 13.6 % (13.2-15.2)
[2022-02-10 18:04] LABS: Alanine Aminotransferase 10 units/L (7-56); Albumin 4.3 g/dL (3.9-5); BUN/Creatinine Ratio 13; Blood Urea Nitrogen 12 mg/dL (9-20); Calcium 9.5 mg/dL (8.4-10.2); Hemolysis Index 8
[2022-02-10 21:32] VITALS: BP 120/74
== END 2022-02-10 21:00 | disposition home or self-care (01) ==
LOC: EDUNIT# → ED 15:07
DX: R56.9 Unspecified convulsions (principal)
CPT/HCPCS: 36415; 70450; 80053; 82140; 82550; 83735; 85025; 96374; 99284; J1953